=== PATIENT | female | born 1970 | race Caucasian/White ===

== ENCOUNTER 2023-09-22 07:33 | Day surgery (SDC) | payer OTHER ==
[~2023-09-22] VITALS: Ht 167.6 cm; Wt 72.6 kg
[2023-09-22] MEDS ORDERED: fentaNYL citrate 0.05 MG/ML VIAL ONE (11:09)
[2023-09-22] MEDS ORDERED: LIDOCAINE 2% 100 MG/5 ML UJET TP ONE (11:09)
[2023-09-22] MEDS: fentaNYL citrate 0.05 MG/ML VIAL IVP ONE (11:17)
[2023-09-22] MEDS: LIDOCAINE 2% 100 MG/5 ML UJET TP ONE (11:26)
== END 2023-09-22 12:30 | disposition home or self-care (01) ==
LOC: MDS 07:33 → MMU 07:36 → MDS 12:30
PROVIDERS: ATTEND Internal Medicine Gastroenterology
DX: Z12.11 Encounter for screening for malignant neoplasm of colon (principal); E78.5 Hyperlipidemia, unspecified; Z80.0 Family history of malignant neoplasm of digestive organs; Z79.899 Other long term (current) drug therapy; Z98.890 Other specified postprocedural states
CPT/HCPCS: 45378; J3010